=== PATIENT | male | born 1960 | race Caucasian/White ===

== ENCOUNTER 2023-09-19 18:52 | Inpatient (IN) | payer OTHER, SELFPAY ==
[2023-09-19 15:20] VITALS: BP 133/95
[2023-09-19 15:51] VITALS: BP 144/81
[2023-09-19 16:18] VITALS: BMI 46.8
[2023-09-19 16:26] LABS: Hematocrit 37.1 % (39.0-52.0); Hemoglobin 12.8 g/dL (13.0-18.0); Mean Corp Hgb Conc. 34.5 g/dL (33.0-37.0); Mean Corpuscular Hgb 29.4 pg (27.0-31.0); Mean Corpuscular Volume 85.3 fL (80.0-94.0); Platelet Count 120 10^3/uL (130-400); Red Blood Cell Count 4.35 10^6/uL (4.70-6.10)
[2023-09-19 16:42] LABS: ALT (SGPT) 30 U/L (0-50); AST (SGOT) 27 U/L (17-59); Albumin 3.9 g/dl (3.5-5.0); Alkaline Phosphatase 48 U/L (38-126); Blood Urea Nitrogen 14 mg/dl (9-20); Calcium 8.8 mg/dl (8.4-10.2); Carbon Dioxide 27 mmol/L (22-30); Chloride 103 mmol/L (98-107); Estimated Creatinine Clearance > 125 ml/min; Glucose 236 mg/dl (70-99); Potassium 4.6 mmol/L (3.5-5.1); Sodium 136 mmol/L (135-145); Total Bilirubin 1.3 mg/dl (0.2-1.3); Total Protein 6.6 g/dl (6.3-8.2); eGFR > 60.00
[2023-09-19 17:10] LABS: Lactic Acid 1.3 mmol/L (0.7-2.0)
[2023-09-19] MEDS: VANCOCIN 540 MG IV (17:27)
[2023-09-19] MEDS: ZOSYN 50 IV ×2 (17:28→23:25)
--- NOTE | 2023-09-19 17:37 | ED.GENMED ---
History of Present Illness
General
Chief Complaint: Skin Problem
Source: patient
Exam Limitations: none
Time Seen by Provider: 09/19/23 16:18
Nursing documentation reviewed up to this point in time: agreed with
Travel History
Have you had any contact with someone who has COVID-19?: No
Do you have any symptoms of coronavirus? Fever > 100 degrees, chills, cough, shortness of breath, sore throat, loss of taste or smell, muscle aches, or headache?: No
History of Present Illness
History of Present Illness:
63-year-old male insulin pen diabetes, A-fib on presents for bilateral lower extremity redness after power washing his deck on . Patient says he was wearing sneakers that got wet. He did not notice that he got blisters on both of his
feet on the plantar aspects. He does not have any known neuropathy. Patient says that the blisters popped the following day on and leaked some fluid out. He then 2 days later started getting redness up his legs which is now warm. He feels
flushed but no fever.
He denies pain out of proportion to the exam.
Past History
Past History
ED Past Medical History: NIDDM and Other (Kidney stone); Negative Asthma or CAD
ED Past Surgical History: Negative Appendectomy or Bowel resection
Social History
Tobacco: Non-smoker
Alcohol: None
Drug: None
Personal:
Living: with family
Employment: Employed
Family History
Family History: Hypertension
Review of Systems
Review of Systems
Allergies reviewed?: Yes
All Other Systems: Not applicable
Phy Exam
Physical Exam
Physical Exam:
GENERAL: Alert , in no apparent distress
EYE: pupils equal and reactive
NECK: Supple
ENT: o/p clr, mmm.
CARDIAC: Regular rate and rhythm .
LUNGS: Clear breath sounds bilaterally, no acute respiratory distress, no wheezes/rales/rhonchi
ABDOMEN: Soft, without focal tenderness, no r/g, no cvat, normal bowel sounds
NEUROLOGICAL: Alert and oriented, no focal neuro deficits
SKIN: Warm and dry, bilateral plantar feet with large open blisters subcutaneous tissue exposed, no drainage, entire feet and tib-fib region lower extremity is erythematous and warm
MUSCULOSKELETAL: bilateral plantar blisters/open wounds with cellulitis
PSYCH: Normal and appropriate interaction.
Course
Orders/Labs/Results
Orders:
Orders
09/19/23 Dinner
2000 calorie (17 carb) Diabetic
At Your Request: Full Participation
09/19/23 16:01
C-Reactive Protein Urgent
Comment: ADD ON
Complete Blood Count/No Diff Urgent
Comprehensive Metabolic Panel Urgent
Erythrocyte Sed Rate Urgent
Comment: ADD ON
Wound Culture [Wound/Abscess/Other Culture] Urgent
HERIBERTO Source: Ulcer
Specimen Description:
Date Specimen was Collected: 09/19/23
Time Specimen was Collected: 15:57
Comment: right foot
Wound/Abscess/Other Culture Urgent
HERIBERTO Source: Ulcer
Specimen Description:
Date Specimen was Collected: 09/19/23
Time Specimen was Collected: 15:57
Comment: left foot
09/19/23 16:45
Lactic Acid Urgent
Blood Culture Q30M
HERIBERTO Source: Blood/Venous
Specimen Description:
Blood Culture Q30M
HERIBERTO Source: Blood/Venous
Specimen Description:
09/19/23 16:47
Piperacillin/Tazo 3.375 Gram [Zosyn] 3.375 gram in 50 ml IV NOW
09/19/23 16:55
Vancomycin [Vancocin] 2,000 mg 0.9% Sodium Chloride 500 ml [Nss] 500 ml IV NOW
09/19/23 18:01
Admit/Transfer Patient As Directed
Co-Sign Provider:
Level of Care: Inpatient admission
Assign to:: Medical/Surgical
Physician / Group: Luis
Diagnosis: Sepsis, infected plantar ulcers, cellulitis
Reason for Hospitalization: IV antibiotics, podiatry consult
Expected length of stay greater than two midnights?: Yes
ELOS- Estimated Length of Stay in days: 3
I certify the patient meets the requirements for IP care: Yes
09/19/23 18:05
Code Status As Directed
Resuscitation Status: Full Code
09/19/23 18:16
CR Foot - Left Min 3 Views Routine
Comment:
Reason For Exam: plantar ulcer
CR Foot - Right Min 3 Views Routine
Comment:
Reason For Exam: plantar ulcer
09/19/23 19:22
0.9% Sodium Chloride 1000 ml [Nss] 1,000 ml IV 100 mls/hr
Acetaminophen [Tylenol] 650 mg PO Q6HPRN PRN
Dextrose 50%-Water [Dextrose 50% Syringe] 12.5 grams IV [id number] PRN
Glucagon [GlucaGen] 1 mg IM PRN PRN
Insulin Aspart/Asp Protamine [Novolog Mix 70/30 Flexpen] 45 units SC BID@0800,1700
09/19/23 19:22
PODIATRY CONSULT Routine
Consulting Provider: Mandy Cavazos
Was physician already notified: Yes
Activity As Directed
Activity Level: Ambulate
Bedside Glucose Monitoring As Directed
Frequency: AC&HS
Additional Instructions:: Change to q6h if pt on TPN, tube feeding or not eating
DX Deep Vein Thrombosis Video Routine
09/19/23 20:00
Metoprolol Xl [Toprol Xl] 25 mg PO BID
09/19/23 22:00
Cpap [RESP] HS
Patient to use own unit?: Yes
09/20/23 00:00
Piperacillin/Tazo 3.375 Gram [Zosyn] 3.375 gram in 50 ml IV Q6H
09/20/23 06:00
BMP [Basic Metabolic Panel] IN AM
CBC/With Diff [Complete Blood Count/With Diff] IN AM
Glycohemoglobin (HgbA1c) IN AM
09/20/23 07:00
VANCOMYCIN Pharmacy to Dose [VANCOCIN Pharmacy to Dose] 1 each Pharmacy To Prepare [Call Pharmacy To Prepare] 0 ml IV PER PROTOCOL
09/20/23 07:30
Insulin Aspart Corrective Low [Novolog Flexpen-Low Resistance] See Protocol SC AC
09/20/23 08:00
Ezetimibe [Zetia] 10 mg PO DAILY
Furosemide [Lasix] 20 mg PO DAILY
Losartan [Cozaar] 50 mg PO DAILY
09/20/23 18:00
Cholecalciferol (Vitamin D3) [VITAMIN D3 (cholecalciferol)] 75 mcg PO QPM
Enoxaparin Sodium [Lovenox] 40 mg SC QPM
09/21/23 06:00
CBC/With Diff [Complete Blood Count/With Diff] IN AM
Abnormal Lab Results
09/19/23
16:01
WBC 12.0 H 10^3/uL
(4.8-10.8)
RBC 4.35 L 10^6/uL
(4.70-6.10)
Hgb 12.8 L g/dL
(13.0-18.0)
Hct 37.1 L %
(39.0-52.0)
Plt Count 120 L 10^3/uL
(130-400)
MPV 11.0 H fL
(7.4-10.4)
ESR 37 H mm/hour
(0-20)
Glucose 236 H mg/dl
(70-99)
C-Reactive Protein 58.60 H mg/L
(0.0-10.00)
09/19/23 16:01
09/19/23 16:01
Vital Signs
Initial and Last Documented VS:
Initial Vital Signs
Temp Pulse Resp BP Pulse Ox
98.2 F 98 18 133/95 100
09/19/23 15:20 09/19/23 15:20 09/19/23 15:20 09/19/23 15:20 09/19/23 15:20
Last Documented Vital Signs
Temp Pulse Resp BP Pulse Ox
99.4 F 93 18 146/73 20
09/19/23 22:50 09/19/23 22:50 09/19/23 22:50 09/19/23 22:50 09/19/23 22:50
MDM/Problems Addressed
Differential Diagnosis Includes:
cellulitis, plantar blisters, diabetic wounds, less likely nec fasc
MDM/Problems Addressed:
63 y/o M with h/o IDDM
afib on eliquis
was power washing the deck with hose water, no chemicals 5 days ago and wearing wet sneakers; got blisters both feet that popped the following day; then started with redness 2 days ago and progressed up his legs; afebrile; open blisters b/l plantar
feet and cellulitis B/L LE almost to knees; wbc 12, lactate normal; vanc/zosyn;
*Critical Care Note
Total Time (30-74mins, 75-104mins- exclusive of procedures): Not Applicable
ED Attending Note
-
Portions of this chart may have been created with voice recognition software.� Occasional wrong word or��sound alike� substitutions may have occurred due to the inherent limitations of voice recognition software.
Discharge Plan
Departure
Patient Disposition: Admit
Date of Disposition: 09/19/23
Time of Disposition: 17:34
Admit to: Med/Surg
Presentation/result/management discussed w/ accepting MD/DO: Hospitalist
Condition: Fair
Covid-19: Not Applicable
Discharge Problem:
diabetic skin infection, Bilateral cellulitis of lower leg
Interventions
Interventions:
*Risk Screen - Suicide Last Done: 09/19/23 15:20
*General Assessment Last Done: 09/19/23 15:20
*Neglect/Abuse Screening Last Done: 09/19/23 15:20
ED- Fall Risk Assessment Last Done: 09/19/23 16:18
*ED COVID-19 Vaccine History Last Done: 09/19/23 15:25
*Nursing Disposition Last Done: 09/19/23 19:05
ED-Skin Assessment Last Done: 09/19/23 16:18
Discharge Date and Time
Discharge Date/Time: 09/19/23 19:17
--- NOTE | 2023-09-19 18:11 | HPS.HSE ---
Family Physician
-
Family Physician: Rigo Mora
Chief Complaint
-
Painful plantar blisters
History of Present Illness
63-year-old male with diabetes here complaining of painful blisters on the bottom of both feet.
He was power washing his deck last Saturday with wet sneakers and subsequently noted ulcers on both plantar feet on Saturday.
Subsequently noted progressive redness and swelling of both legs over the past 24 to 48 hours.
Had chills at home but not sure if he had a fever. Did not check.
Denies history of cellulitis.
Has not been checking his blood sugars on a regular basis at home.
Has not been to a revenue research analyst in a long time. Denies history of vascular disease.
Medical History
Past Medical History
Past Medical History: Reports Other
Additional Past Medical History:
DM2
Permanent atrial fibrillation
Morbid obesity
HERIBERTO
TIA
Hyperlipidemia
Essential hypertension
Past Surgical History: Reports Orthopedic
Social History
Tobacco: Non-smoker
Alcohol: Occasional
Drug: None
Personal:
Living: With Family
Family History
Family History: Not pertinent
Allergies / Home Medications
Allergies reflects when Allergies were last updated in [facility].
Home Medications with original date entered in [facility]
Allergy/Medication List:
Allergies
Allergy/AdvReac Type Severity Reaction Status Date / Time
Sulfa (Sulfonamide Allergy Hives Verified 09/19/23 15:20
Antibiotics)
sulfamethoxazole Allergy Hives Verified 09/19/23 15:20
[From Bactrim]
trimethoprim [From Bactrim] Allergy Hives Verified 09/19/23 15:20
Home Medications
kzgswdl-mgotsispoczjo-ohbwzqep 250 mg-250 mg-65 mg tablet (Excedrin Migraine) 2 tab PO Q6H PRN headache 11/02/21
omega 5-haz-flg-fish oil 1,000 mg (120 mg-180 mg) capsule (Fish Oil) 1 cap PO QPM Supplement 11/02/21
vitamin B complex 1 cap PO QPM Supplement 11/02/21
apixaban 5 mg tablet (Eliquis) 5 mg PO BID 09/19/23
cholecalciferol (vitamin D3) 25 mcg (1,000 unit) tablet 75 mcg PO QPM 09/19/23
ezetimibe 10 mg tablet 10 mg PO DAILY 09/19/23
furosemide 20 mg tablet 20 mg PO DAILY 09/19/23
insulin lispro protamine-lispro 100 unit/mL (75-25) subcutaneous pen (Humalog Mix 75-25 KwikPen) 40 unit SC DAILY 09/19/23
insulin lispro protamine-lispro 100 unit/mL (75-25) subcutaneous pen (Humalog Mix 75-25 KwikPen) 55 unit SC QPM 09/19/23
losartan 50 mg tablet 50 mg PO DAILY 09/19/23
metoprolol succinate 25 mg tablet,extended release 24 hr (Toprol XL) 25 mg PO BID 09/19/23
tirzepatide 5 mg/0.5 mL subcutaneous pen injector (Mounjaro) 5 mg SC TH 09/19/23
Review of Systems
-
History Source: Patient
A 12 point ROS was completed and negative except as noted: Yes
Physical Exam
Vital Signs
Vital Signs
Temp Pulse Resp BP Pulse Ox
98.2 F 98 18 144/81 97
09/19/23 15:20 09/19/23 15:20 09/19/23 15:20 09/19/23 15:51 09/19/23 17:16
Physical Exam
General: Well Developed, Well Nourished, No Apparent Distress, Comfortable and Morbidly Obese
HEENT: NormoCephalic, Anicteric and Moist mucous membranes
Respiratory: Clear
Cardiac: S1/S2 and Regular Rhythm
Breast: Deferred by me
GI: Soft, Non Tender and Non Distended
Genito-urinary: Deferred by me
Musculoskeletal: No Clubbing, No Cyanosis, Edema, Left Lower Extremity and Edema, Right Lower Extremity
Skin: Warm, Dry and Other (Bilateral ankle erythema and cellulitic changes, bilateral plantar large superficial ulcers without active drainage. Callus at the head of both first metatarsals)
Neuro: AO x 3
Hematologic/Lymphatic: No Lymphadenopathy
Psych: Calm
Laboratory Results
-
09/19/23 16:01
09/19/23 16:01
Laboratory Results
Lactic Acid 1.3 mmol/L (0.7-2.0) 09/19/23 16:45
Total Bilirubin 1.3 mg/dl (0.2-1.3) 09/19/23 16:01
AST 27 U/L (17-59) 09/19/23 16:01
ALT 30 U/L (0-50) 09/19/23 16:01
Alkaline Phosphatase 48 U/L (38-126) 09/19/23 16:01
Impression/Plan
-
Sepsis due to bilateral lower extremity plantar ulcers/cellulitis -admit to [facility]. Hemodynamically stable. Leukocytosis noted. Afebrile. Continue broad-spectrum antibiotics. Check cultures. Consult podiatry. Check x-rays of both feet. ESR,
CRP.
Check lower extremity BITA, assess for PAD.
Permanent atrial fibrillation -hold Eliquis in case of need for debridement. Discussed with podiatry.
Thrombocytopenia -120k. Unknown acuity or etiology. Monitor for now.
DM2 with hyperglycemia -glucose 236 this afternoon. Check hemoglobin A1c. Use NovoLog Mix insulin along with low resistance corrective scale for now.
At home he is on Humalog mix insulin 75/25, 40 units in the morning and 55 units in the evening along with Mounjaro 5 mg subcutaneously every . He did not receive the dose of Mounjaro today. This medication is non-formulary, he will ask
his to bring it in tomorrow.
Essential hypertension -resume losartan, metoprolol.
Hyperlipidemia
Hx of TIA
HERIBERTO - will bring in home CPAP machine.
Morbid obesity due to excess calories
Full code
--- NOTE | 2023-09-19 19:00 | EDRN ---
paper report was tubed up to the receiving unit
[2023-09-19 19:10] VITALS: BP 147/76
[2023-09-19 19:33] VITALS: BMI 46.6
[2023-09-19 19:36] VITALS: BP 112/84
[2023-09-19 19:43] LABS: Glucose - Point of Care 139 mg/dl (70-99)
[2023-09-19 19:56] VITALS: BMI 46.6
[2023-09-19 20:25] LABS: Erythrocyte Sed Rate 37 mm/hour (0-20)
[2023-09-19 21:14] LABS: Glucose - Point of Care 231 mg/dl (70-99)
--- NOTE | 2023-09-19 21:45 | PTCARENOTE ---
Pt arrived to room 437-02. Pt ambulated from stretcher to bed. Pt AAOx3, VSS. Pt in no signs of acute distress, respirations regular. Pt at bedside. Pt oriented to room, call max placed within reach.
[2023-09-19] MEDS: NOVOLOG MIX 70/30 FLEXPEN 45 UNITS SC (21:47)
[2023-09-19] MEDS: TOPROL XL 25 MG PO (21:48)
[2023-09-19] MEDS: NSS 1000 IV (21:48)
[2023-09-19 22:50] VITALS: BP 146/73
[2023-09-19] MEDS: TYLENOL 650 MG PO (23:34)
[2023-09-20] MEDS: ZOSYN 50 IV ×3 (05:48→17:20)
[2023-09-20] MEDS: TYLENOL 650 MG PO ×2 (05:50→17:53)
[2023-09-20 07:30] VITALS: BP 111/79
--- NOTE | 2023-09-20 08:05 | W.CS.POD ---
Consult Summary - Podiatry
-
Pt seen bedside for cellulitis of the legs and feet secondary to blisters on the feet. He says he feels much better. Ulcers plantar aspect of feet are superficial. No need for surgical debridement . Recommend bacitracin and gauze dressings until
healed and to be changed daily. He is ok for D/C on PO antibioitics. He will f/u in my office in one week Consult dictated
[2023-09-20 08:13] LABS: Glucose - Point of Care 107 mg/dl (70-99)
[2023-09-20 09:09] LABS: % Basophils 0.7 % (0-2); % Eosinophils 1.8 % (0-6); % Immature Granulocytes 0.5 % (0-0.5); % Lymphocytes 18.1 % (20.5-51.1); % Monocytes 8.7 % (1.7-9.3); % Neutrophils 70.2 % (42.2-75.2); Absolute Basophils 0.1 10^3/uL (0-0.2); Absolute Eosinophils 0.2 10^3/uL (0-0.7); Absolute Immature Granulocytes 0.1 10^3/uL (0-0.05); Absolute Lymphocytes 1.7 10^3/uL (1.2-3.4); Absolute Monocytes 0.8 10^3/uL (0.1-0.6); Absolute Neutrophils 6.4 10^3/uL (1.4-6.5); Hematocrit 35.9 % (39.0-52.0); Hemoglobin 12.2 g/dL (13.0-18.0); Mean Corpuscular Hgb 29.2 pg (27.0-31.0); Mean Corpuscular Volume 85.9 fL (80.0-94.0); Mean Platelet Volume 10.8 fL (7.4-10.4); Nucleated Red Blood Cells % 0 % (-); Platelet Count 120 10^3/uL (130-400); Red Blood Cell Count 4.18 10^6/uL (4.70-6.10); Red Cell Dist. Width 13.1 % (11.5-14.5); White Blood Cell Count 9.1 10^3/uL (4.8-10.8)
[2023-09-20 09:23] LABS: Vancomycin Random 5.5 ug/ml
[2023-09-20] MEDS: NOVOLOG FLEXPEN-LOW RESISTANCE SC ×3 (09:26→17:19)
[2023-09-20] MEDS: ZETIA 10 MG PO (09:27)
[2023-09-20] MEDS: COZAAR 50 MG PO (09:28)
[2023-09-20] MEDS: TOPROL XL 25 MG PO ×2 (09:28→21:42)
[2023-09-20] MEDS: LASIX 20 MG PO (09:28)
[2023-09-20] MEDS: NOVOLOG MIX 70/30 FLEXPEN 45 UNITS SC ×2 (09:29→17:21)
--- NOTE | 2023-09-20 09:33 | PHA.VAN.IN ---
Assessment
- Assessment
Renal Function: Appears similar to baseline
Concomitant Antimicrobials: piperacillin/tazobactam
Laboratory Tests
09/20/23
08:42
Random Vancomycin 5.5
Drawn ~15H after 2g loading dose
AUC Dosing Plan
- Dosing Variables
Dosing Weight (kg): 173
Dosing CrCl (ml/min): 125
Vd coefficient (L/kg): 0.5
- Empiric Dosing
Initial / Loading Dose: 2000mg - 09/18 17:27
Maintenance Regimen: Vanc 1750mg Q12H -give additional 2g now then start maintenance at 1800
Estimated AUC (mcg*h/mL): 415
Estimated Peak (mcg*h/mL): 27.8
Estimated Trough (mcg/ml): 10
Estimated Half Life (H): 6.4
Based on low level and anticipation that patient will be slow to accumulate with BMI, will give additional 2000mg this AM and start 1750mg Q12H at 1800
- Monitoring
No levels ordered at this time: consider levels in next few days - anticipate will be slow to accumulate
Pharmacokinetics Vancomycin I
- -
Patient Age: 63
Patient Sex: Male
Vancomycin Day #: 1
Indication: Skin And Soft Tissue
Requesting Provider: Dr. Smith
Pertinent Antimicrobial Allergies:
sulfonamide antibiotics - hives
Height / Weight:
Height 6 ft 4 in
Actual Weight 173.414 kg
Pertinent Past Medical History: BMI ~46.5, DM 2
- Vital Signs / Lab Results
Temp Pulse Resp BP Pulse Ox
98.1 F 92 16 111/79 95
09/20/23 07:30 09/20/23 07:30 09/20/23 07:30 09/20/23 07:30 09/20/23 07:30
Lab Results - Hematology
09/19/23 09/20/23
16:01 08:42
WBC 12.0 H 9.1
Lab Results - Chemistry
09/19/23
16:01
BUN 14
Creatinine 0.8
Estimated Creat Clear > 125
Albumin 3.9
09/19/23
16:45
Lactic Acid 1.3
Microbiology Results
09/19/23 16:01 Gram Stain - Preliminary
Ulcer
09/19/23 16:01 Gram Stain - Preliminary
Ulcer
--- NOTE | 2023-09-20 09:46 | WOUNDNOTE ---
[facility] RN note: Patient admitted with bilateral foot blisters.
See H&P for complete history.
PMH: DM2
Permanent atrial fibrillation
Morbid obesity
HERIBERTO
TIA
Hyperlipidemia
Essential hypertension
Wound Location and type/assessment: Patient admitted with bilateral plantar blisters. Patient reports working for many hours in wet shoes and discovered blisters the following day. He has been seen by podiatry and will follow up as outpatient.
Orders updated per recommendations from Dr. Cavazos. Patient given instruction by this director underwriter sales on performing wound care at home. Patient given wound care supplies. Also reviewed importance of good blood sugar control and foot care/daily inspection.
Plan is for discharge to home today. KHADIJAH Beltrán updated.
Appetite: Good
Pressure redistribution devices in place: [employer] Accumax,patient ambulates and turns self in bed.
[2023-09-20 09:49] LABS: Blood Urea Nitrogen 12 mg/dl (9-20); Calcium 8.6 mg/dl (8.4-10.2); Carbon Dioxide 25 mmol/L (22-30); Chloride 107 mmol/L (98-107); Estimated Creatinine Clearance > 125 ml/min; Glucose 104 mg/dl (70-99); Potassium 4.1 mmol/L (3.5-5.1); Sodium 138 mmol/L (135-145); eGFR > 60.00
[2023-09-20] MEDS: VANCOCIN 540 MG IV (10:06)
[2023-09-20] MEDS: BACITRACIN OINTMENT 1 APPLIC TOPICAL (10:12)
[2023-09-20] MEDS: ELIQUIS 5 MG PO ×2 (10:16→21:42)
[2023-09-20 10:36] LABS: Hepatitis C Antibody Negative (Negative)
[2023-09-20 11:57] LABS: Glucose - Point of Care 142 mg/dl (70-99)
--- NOTE | 2023-09-20 12:04 | W.PN.HOSP.TC ---
Today's Communication/Plan
-
Continue antibiotics
Await cultures
Assessment / Plan
Assessment / Plan
Gen-AAOx3, NAD
HEENT-NC, AT, anicteric, clear oral mm
Neck-supple
CV-reg, no M, +S1/S2
Lungs-clear B/L
Abd-soft, NT, ND
Ext-no edema
Musculoskeletal-no cyanosis, clubbing
Skin-warm and dry
Neuro-grossly non-focal
Psych-calm, cooperative
Sepsis due to bilateral lower extremity plantar ulcers/cellulitis -improving with antibiotics. WBC count now normal. Afebrile. Blood and wound cx pending. Currently on empiric broad-spectrum antibiotics, vancomycin and Zosyn.
Appreciate podiatry input. No recommendation for debridement. Follow up as outpatient.
X-rays of feet neg for osteo.
BITA normal bilaterally.
Permanent atrial fibrillation -resume Eliquis.
Thrombocytopenia -120k. Unknown acuity or etiology. Monitor for now.
DM2 with hyperglycemia -glucose 104 this morning. Check hemoglobin A1c. Use NovoLog Mix insulin along with low resistance corrective scale for now.
At home he is on Humalog mix insulin 75/25, 40 units in the morning and 55 units in the evening along with Mounjaro 5 mg subcutaneously every .
Essential hypertension - continue losartan, metoprolol. Blood pressure controlled.
Hyperlipidemia
Hx of TIA
HERIBERTO - will bring in home CPAP machine.
Morbid obesity due to excess calories
Full code
Dispo -possible discharge tomorrow if he remains stable.
Anticipated Discharge: Within 24 hours
Subjective/Interval History
-
Date of Service: September 20, 2023
Patient seen/examined. Feels better, no complaints.
Objective Data
-
Labs:
Laboratory Results
09/20/23
08:42
WBC 9.1
Hgb 12.2 L
Hct 35.9 L
Plt Count 120 L
Sodium 138
Potassium 4.1
Chloride 107
Carbon Dioxide 25
BUN 12
Creatinine 0.8
Glucose 104 H
Calcium 8.6
Vital Signs:
Vital Signs
Temp Pulse Resp BP Pulse Ox
98.1 F 92 16 111/79 95
09/20/23 07:30 09/20/23 07:30 09/20/23 07:30 09/20/23 07:30 09/20/23 07:30
Review of Systems
-
History Source: Patient
All other systems: Reviewed and negative
--- NOTE | 2023-09-20 12:21 | WOUNDNOTE ---
LEFT PLANTAR FOOT
--- NOTE | 2023-09-20 12:21 | WOUNDNOTE ---
RIGHT PLANTAR FOOT
[2023-09-20 12:37] LABS: Glycohemoglobin (HgbA1c) 9.1 % (4.0-5.6)
--- NOTE | 2023-09-20 14:35 | CM ---
Patient seen at bedside. Patient states he lives with in 2 story home and family. Patient PCP is Dr. Mora and he uses the Pharmacy [facility] on [address] Patient is working and independent prior to admission Patient has truck in parking lot.
Patient has CPAP but no other DME. 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 CM will continue to follow for discharge planning needs.
Plan; home with no needs anticipated.
[2023-09-20 15:25] VITALS: BP 134/73
[2023-09-20 16:38] LABS: Glucose - Point of Care 104 mg/dl (70-99)
[2023-09-20] MEDS: VITAMIN D3 (cholecalciferol) 75 MCG PO (17:20)
[2023-09-20] MEDS: VANCOCIN 535 MG IV (18:00)
[2023-09-20 21:45] LABS: Glucose - Point of Care 215 mg/dl (70-99)
[2023-09-20 22:58] VITALS: BP 129/69
[2023-09-21] MEDS: ZOSYN 50 IV ×2 (00:18→05:27)
[2023-09-21] MEDS: FLUSH (NSS) 2 FLUSH IV (00:19)
[2023-09-21] MEDS: VANCOCIN 535 MG IV (05:27)
[2023-09-21] MEDS: FLUSH (NSS) 1 FLUSH IV (05:27)
[2023-09-21 06:16] LABS: % Basophils 0.9 % (0-2); % Eosinophils 2.2 % (0-6); % Immature Granulocytes 0.4 % (0-0.5); % Lymphocytes 15.3 % (20.5-51.1); % Monocytes 7.4 % (1.7-9.3); % Neutrophils 73.8 % (42.2-75.2); Absolute Basophils 0.1 10^3/uL (0-0.2); Absolute Eosinophils 0.2 10^3/uL (0-0.7); Absolute Lymphocytes 1.3 10^3/uL (1.2-3.4); Absolute Monocytes 0.6 10^3/uL (0.1-0.6); Hematocrit 34.8 % (39.0-52.0); Hemoglobin 11.9 g/dL (13.0-18.0); Mean Corp Hgb Conc. 34.2 g/dL (33.0-37.0); Mean Corpuscular Volume 84.7 fL (80.0-94.0); Mean Platelet Volume 11.2 fL (7.4-10.4); Nucleated Red Blood Cells % 0 % (-); Platelet Count 122 10^3/uL (130-400); Red Blood Cell Count 4.11 10^6/uL (4.70-6.10); White Blood Cell Count 8.2 10^3/uL (4.8-10.8)
[2023-09-21 06:40] VITALS: BP 105/53
[2023-09-21 07:48] LABS: Glucose - Point of Care 166 mg/dl (70-99)
[2023-09-21] MEDS: NOVOLOG FLEXPEN-LOW RESISTANCE 1 UNITS SC (07:51)
[2023-09-21] MEDS: BACITRACIN OINTMENT 1 APPLIC TOPICAL (07:52)
[2023-09-21] MEDS: LASIX 20 MG PO (07:53)
[2023-09-21] MEDS: COZAAR 50 MG PO (07:53)
[2023-09-21] MEDS: ELIQUIS 5 MG PO (07:53)
[2023-09-21] MEDS: ZETIA 10 MG PO (07:53)
[2023-09-21] MEDS: TOPROL XL 25 MG PO (07:54)
[2023-09-21] MEDS: NOVOLOG MIX 70/30 FLEXPEN 45 UNITS SC (07:56)
--- NOTE | 2023-09-21 08:38 | W.PN.HOSP.TC ---
Addendum entered and electronically signed by Christiano Smith DO 09/21/23 12:31:
After patient was discharged, wound culture came back with polymicrobial growth including methicillin sensitive Staph aureus, Enterococcus, group G Streptococcus.
He therefore only needs Augmentin on discharge. I left a voicemail for patient's informing her of the findings and to forego taking doxycycline but to continue to take Augmentin on discharge.
Original Note:
Today's Communication/Plan
-
Discharge
Assessment / Plan
Assessment / Plan
Gen-AAOx3, NAD
HEENT-NC, AT, anicteric, clear oral mm
Neck-supple
CV-reg, no M, +S1/S2
Lungs-clear B/L
Abd-soft, NT, ND
Ext-no edema
Musculoskeletal-no cyanosis, clubbing
Skin-warm and dry
Neuro-grossly non-focal
Psych-calm, cooperative
Sepsis due to bilateral lower extremity plantar ulcers/cellulitis -improving with antibiotics. WBC count now normal. Afebrile. Blood cultures negative. Wound culture shows Staph aureus, sensitivity pending. MRSA screen pending. Patient
requesting discharge today. Can discharge on doxycycline to cover MRSA, Augmentin for other bacteria including strep.
Appreciate podiatry input. No recommendation for debridement. Follow up as outpatient.
X-rays of feet neg for osteo.
BITA normal bilaterally.
Permanent atrial fibrillation -resume Eliquis.
Thrombocytopenia -122k. Unknown acuity or etiology. Recommend follow-up with PCP. Discussed with patient and .
DM2 with hyperglycemia -glucose 104 this morning. Hemoglobin A1c 9.1%. Discussed with patient importance of improving glucose control on discharge especially in light of his foot wounds. He plans to follow-up with PCP and endocrinology.
Use NovoLog Mix insulin along with low resistance corrective scale for now.
At home he is on Humalog mix insulin 75/25, 40 units in the morning and 55 units in the evening along with Mounjaro 5 mg subcutaneously every .
Essential hypertension - continue losartan, metoprolol. Blood pressure controlled.
Hyperlipidemia
Hx of TIA
HERIBERTO - will bring in home CPAP machine.
Morbid obesity due to excess calories
Full code
Dispo -stable for discharge today. Follow-up with PCP and endocrinology, podiatry.
32 minutes spent in discharge process.
Anticipated Discharge: Today
Subjective/Interval History
-
Date of Service: September 21, 2023
Patient seen and examined. No new complaints.
Objective Data
-
Labs:
Laboratory Results
09/21/23
04:38
WBC 8.2
Hgb 11.9 L
Hct 34.8 L
Plt Count 122 L
Vital Signs:
Vital Signs
Temp Pulse Resp BP Pulse Ox
98.6 F 80 20 105/53 95
09/21/23 06:40 09/21/23 06:40 09/21/23 06:40 09/21/23 06:40 09/21/23 06:40
I&O
09/20/23 09/21/23 09/22/23
06:59 06:59 06:59
Intake Total 1115 / 1115
Balance 1115 / 1115
Review of Systems
-
History Source: Patient
All other systems: Reviewed and negative
--- NOTE | 2023-09-21 08:48 | W.DS.TRANS ---
DC Summary - Cro
-
Discharge Instructions:
Discharge Diagnosis/Procedures Sepsis, bilateral plantar ulcers,
thrombocytopenia, uncontrolled diabetes
Diet Diabetic, Carb Controlled
Activity As tolerated
Driving Restrictions As prior to admission
Bathing Restrictions None
Instructions:
Stand-Alone Forms:
Changes to Home Medications: No
Discharge Medications:
DC Medications w/original date entered in [facility]
tjymrqq-mceazkxfadokf-kgdzarlg 250 mg-250 mg-65 mg tablet (Excedrin Migraine) 2 tab PO Q6H PRN headache 11/02/21
omega 6-btn-dwr-fish oil 1,000 mg (120 mg-180 mg) capsule (Fish Oil) 1 cap PO QPM Supplement 11/02/21
vitamin B complex 1 cap PO QPM Supplement 11/02/21
apixaban 5 mg tablet (Eliquis) 5 mg PO BID 09/19/23
cholecalciferol (vitamin D3) 25 mcg (1,000 unit) tablet 75 mcg PO QPM 09/19/23
ezetimibe 10 mg tablet 10 mg PO DAILY 09/19/23
furosemide 20 mg tablet 20 mg PO DAILY 09/19/23
insulin lispro protamine-lispro 100 unit/mL (75-25) subcutaneous pen (Humalog Mix 75-25 KwikPen) 40 unit SC DAILY 09/19/23
insulin lispro protamine-lispro 100 unit/mL (75-25) subcutaneous pen (Humalog Mix 75-25 KwikPen) 55 unit SC QPM 09/19/23
losartan 50 mg tablet 50 mg PO DAILY 09/19/23
metoprolol succinate 25 mg tablet,extended release 24 hr (Toprol XL) 25 mg PO BID 09/19/23
tirzepatide 5 mg/0.5 mL subcutaneous pen injector (Mounjaro) 5 mg SC TH 09/19/23
amoxicillin 875 mg-potassium clavulanate 125 mg tablet 1 tab PO BID #20 tabs 09/21/23
bacitracin zinc 500 unit/gram topical ointment 1 applic topical DAILY #28 grams 09/21/23
doxycycline hyclate 100 mg tablet 100 mg PO BID #20 tabs 09/21/23
Home Medication Changes
Pending Results: No
== END 2023-09-21 09:43 | disposition home or self-care (01) | DRG 872 ==
LOC: 4 WEST ACU 18:52
PROVIDERS: Emergency Medicine; Physician Assistant; ADMITTING PHYSICIAN Hospitalist; CONSULT PHYSICIAN Podiatrist; EMERGENCY PHYSICIAN Student in an Organized Health Care Education/Training Program; FAMILY PHYSICIAN Family Medicine
DX: A41.9 Sepsis, unspecified organism (principal); L03.115 Cellulitis of right lower limb; L03.116 Cellulitis of left lower limb; I48.21 Permanent atrial fibrillation; Z68.42 Body mass index [BMI] 45.0-49.9, adult; L97.421 Non-pressure chronic ulcer of left heel and midfoot limited to breakdown of skin; L97.411 Non-pressure chronic ulcer of right heel and midfoot limited to breakdown of skin; E11.621 Type 2 diabetes mellitus with foot ulcer; E11.65 Type 2 diabetes mellitus with hyperglycemia; G47.33 Obstructive sleep apnea (adult) (pediatric); E78.5 Hyperlipidemia, unspecified; I10 Essential (primary) hypertension; E66.01 Morbid (severe) obesity due to excess calories; B95.61 Methicillin susceptible Staphylococcus aureus infection as the cause of diseases classified elsewhere; B95.2 Enterococcus as the cause of diseases classified elsewhere; B95.4 Other streptococcus as the cause of diseases classified elsewhere; D69.6 Thrombocytopenia, unspecified; Z86.73 Personal history of transient ischemic attack (TIA), and cerebral infarction without residual deficits; Z88.1 Allergy status to other antibiotic agents; Z88.2 Allergy status to sulfonamides; Z79.01 Long term (current) use of anticoagulants; Z79.4 Long term (current) use of insulin; Z79.82 Long term (current) use of aspirin; Z79.85 Long-term (current) use of injectable non-insulin antidiabetic drugs
CPT/HCPCS: 73630; 80048; 80053; 80202; 82962; 83036; 83605; 85025; 85027; 85652; 86140; 86803; 87040; 87070; 87077; 87147; 87186; 87205; 93922; 96365; 96366; 96367; 99284

== ENCOUNTER → 2023-10-07 08:05 | Outpatient (REF) | payer OTHER, SELFPAY | LOC: WOUND 08:05 | PROVIDERS: ATTENDING PHYSICIAN Surgery; FAMILY PHYSICIAN Family Medicine | DX: L97.512 Non-pressure chronic ulcer of other part of right foot with fat layer exposed (principal); L97.522 Non-pressure chronic ulcer of other part of left foot with fat layer exposed; I87.2 Venous insufficiency (chronic) (peripheral); I73.9 Peripheral vascular disease, unspecified; E11.65 Type 2 diabetes mellitus with hyperglycemia; E11.69 Type 2 diabetes mellitus with other specified complication; E66.01 Morbid (severe) obesity due to excess calories; Z86.73 Personal history of transient ischemic attack (TIA), and cerebral infarction without residual deficits; Z79.4 Long term (current) use of insulin | CPT/HCPCS: 99204 ==

== ENCOUNTER → 2023-10-14 13:14 | Outpatient (REF) | payer OTHER, SELFPAY | LOC: WOUND 13:14 | PROVIDERS: ATTENDING PHYSICIAN Surgery; FAMILY PHYSICIAN Family Medicine | DX: L97.512 Non-pressure chronic ulcer of other part of right foot with fat layer exposed (principal); L97.522 Non-pressure chronic ulcer of other part of left foot with fat layer exposed; I87.2 Venous insufficiency (chronic) (peripheral); I73.9 Peripheral vascular disease, unspecified; E11.65 Type 2 diabetes mellitus with hyperglycemia; E11.69 Type 2 diabetes mellitus with other specified complication; E66.01 Morbid (severe) obesity due to excess calories; Z86.73 Personal history of transient ischemic attack (TIA), and cerebral infarction without residual deficits; Z79.4 Long term (current) use of insulin | CPT/HCPCS: 99213 ==

== ENCOUNTER → 2023-12-03 12:47 | Outpatient (REF) | payer OTHER, SELFPAY | LOC: RAD 12:47 | PROVIDERS: ATTENDING PHYSICIAN Surgery; FAMILY PHYSICIAN Family Medicine | DX: L97.512 Non-pressure chronic ulcer of other part of right foot with fat layer exposed (principal); I87.2 Venous insufficiency (chronic) (peripheral); I73.9 Peripheral vascular disease, unspecified | CPT/HCPCS: 93922; 93925; 93970 ==

== ENCOUNTER 2024-03-26 19:56 | Emergency (ER) | payer OTHER, SELFPAY ==
[2024-03-26 19:56] VITALS: BMI 46.6
[2024-03-26 20:10] VITALS: BP 133/87
[2024-03-26] MEDS: ROXICODONE 10 MG PO (20:31)
--- NOTE | 2024-03-26 20:35 | ED.GENMED ---
History of Present Illness
General
Chief Complaint: Head Injury
Source: patient and spouse
Time Seen by Provider: 03/26/24 20:12
History of Present Illness
History of Present Illness:
63-year-old male who presents after he fell backward off a ladder. The patient states he was probably on the first rung. It was a stepladder. He states he just lost his balance and fell back and hit his head on a TV table. Also complains of a
pain in left lower back. States he thinks he may have hit the edge of the couch. Patient is anticoagulated due to A-fib. Denies loss of consciousness. No motor weakness. No numbness. No tingling. No neck pain. Spouse adds that there was a TV
stand nearby she thinks he hit his head on that.
Past History
Past History
ED Past Medical History: Arrthythmia (Atrial fibrillation), CVA, NIDDM and Other (Kidney stone)
ED Past Surgical History: Negative Appendectomy or Bowel resection
Social History
Tobacco: Non-smoker
Alcohol: None
Drug: None
Personal:
Living: with family
Employment: Employed
Family History
Family History: Hypertension
Phy Exam
Physical Exam
Physical Exam:
CONSTITUTIONAL Patient alert and oriented to person, place and time. Well-appearing. Vital signs reviewed.
HEAD right posterior scalp abrasion approximately 1.5 cm, no active bleeding.
EYES eyelids normal to inspection, Extraocular muscles intact, Conjunctiva normal, Sclera normal.
NECK normal range of motion, Trachea midline, no jugular venous distention. No midline tenderness
RESPIRATORY CHEST No respiratory distress noted, Chest expansion equal
ABDOMEN abdomen nontender, Bowel sounds normal. No distention.
BACK normal inspection, no obvious deformities. Mild midline tenderness around the area of L5. Mild tenderness to the left paraspinal region in that area.
UPPER EXTREMITY range of motion normal, Motor strength normal, no cyanosis, no edema.
LOWER EXTREMITY range of motion normal, Motor strength normal, no cyanosis, no edema.
NEURO Speech normal, No focal motor deficits, Ava coma scale 15, Memory normal, Cranial Nerves intact to screening exam.
SKIN skin warm, dry, and normal in color.
Course
Orders/Labs/Results
Orders:
Orders
03/26/24 20:15
CT Head W/o Iv Contrast Urgent
Comment:
Reason For Exam: fall off ladder
CT Lumbar Spine W/o Iv Contras Urgent
Comment:
Reason For Exam: fall off ladder
03/26/24 20:25
Oxycodone [Roxicodone] 10 mg PO NOW STA
03/26/24 21:03
Vital Signs- Treatment ONCE
Frequency: Once
Vital Signs
Initial and Last Documented VS:
Initial Vital Signs
Pulse Ox
100
03/26/24 20:00
Last Documented Vital Signs
Temp Pulse Resp BP Pulse Ox
98.3 F 80 16 144/61 98
03/26/24 22:00 03/26/24 22:39 03/26/24 22:00 03/26/24 22:00 03/26/24 22:39
MDM/Problems Addressed
Differential Diagnosis Includes:
contusion, abrasion, intracranial hemorrhage, skull fracture
MDM/Problems Addressed:
Abrasion, head injury, transverse process fracture
*Radiology
Radiology exam reviewed: radiology read reviewed
*Pulse Oximetry
Patient hypoxic: no
*Critical Care Note
Total Time (30-74mins, 75-104mins- exclusive of procedures): Not Applicable
Data Reviewed
Source: patient and spouse
Further Testing Considered But Not Given:
Consider C-spine imaging but no midline tenderness. No neck pain
Patient Management
Escalation/DeEscalation of care consider admission/obs:
63-year-old male who presents after fall. CT of the head negative for intracranial hemorrhage. Was found to have transverse process fracture. Nonfocal neurologic assessment. Okay for discharge with outpatient follow-up and pain control
ED Attending Note
-
Portions of this chart may have been created with voice recognition software.� Occasional wrong word or��sound alike� substitutions may have occurred due to the inherent limitations of voice recognition software.
Discharge Plan
Departure
Patient Disposition: Home (Routine Discharge)
Date of Disposition: 03/26/24
Time of Disposition: 23:06
Patient with high blood pressure during this ER visit?: Yes
Discharge Problem:
Head injury, Closed fracture of transverse process of lumbar vertebra, Abrasion
Instructions: Head Injury in Adults (DC), BLOOD PRESSURE, Abrasions - ED discharge instructions
Prescriptions:
No Action
Excedrin Migraine 250-250-65 mg Tablet
2 tab PO Q6H PRN (Reason: headache)
vitamin B complex Capsule
1 cap PO QPM
omega 3-rff-akx-fish oil [Fish Oil] 1,000 mg (120 mg-180 mg) Capsule
1 cap PO QPM
losartan 50 mg tablet
50 mg PO DAILY
furosemide 20 mg tablet
20 mg PO DAILY
insulin lispro protamin-lispro [Humalog Mix 75-25 KwikPen] 100 unit/mL (75-25) insulin pen
40 unit SC DAILY
insulin lispro protamin-lispro [Humalog Mix 75-25 KwikPen] 100 unit/mL (75-25) insulin pen
55 unit SC QPM
ezetimibe 10 mg tablet
10 mg PO DAILY
cholecalciferol (vitamin D3) 25 mcg (1,000 unit) Tablet
75 mcg PO QPM
Eliquis 5 mg tablet
5 mg PO BID
Mounjaro 5 mg/0.5 mL pen injector
5 mg SC TH
metoprolol succinate [Toprol XL] 25 mg tablet extended release 24 hr
25 mg PO BID
bacitracin zinc 500 unit/gram Ointment
1 applic topical DAILY Qty: 28 0RF
Rx Instructions:
apply to foot wounds daily
doxycycline hyclate 100 mg tablet
100 mg PO BID Qty: 20 0RF
amoxicillin-pot clavulanate 875-125 mg tablet
1 tab PO BID Qty: 20 0RF
Referrals:
UNKNOWN - PT DOES,NOT KNOW [Family Provider] -
Activity Restrictions/Additional Instructions:
Please see orthopedics in the next 1 week for follow-up. Rest and ice your injuries. Return immediately for weakness of any kind, worsening pain,
Interventions
Interventions:
*Risk Screen - Suicide Last Done: 03/26/24 20:12
*General Assessment Last Done: 03/26/24 20:12
*Neglect/Abuse Screening Last Done: 03/26/24 20:12
ED- Fall Risk Assessment Last Done: 03/26/24 20:12
ED- Neurological Assessment Last Done: 03/26/24 20:12
ED-Skin Assessment Last Done: 03/26/24 20:12
Discharge Date and Time
Print Language: URDU
[2024-03-26 21:00] VITALS: BP 139/89
[2024-03-26 22:00] VITALS: BP 144/61
[2024-03-26] MEDS: LIDOCAINE 4% PATCH 1 PATCH TOPICAL (23:35)
[2024-03-26 23:41] VITALS: BP 105/73
== END 2024-03-26 23:42 | disposition home or self-care (01) ==
LOC: EMR 19:56
PROVIDERS: EMERGENCY PHYSICIAN Emergency Medicine
DX: S32.018A Other fracture of first lumbar vertebra, initial encounter for closed fracture (principal); S32.028A Other fracture of second lumbar vertebra, initial encounter for closed fracture; S00.01XA Abrasion of scalp, initial encounter; S09.90XA Unspecified injury of head, initial encounter; W11.XXXA Fall on and from ladder, initial encounter; R03.0 Elevated blood-pressure reading, without diagnosis of hypertension; I48.91 Unspecified atrial fibrillation; E11.9 Type 2 diabetes mellitus without complications; Z87.442 Personal history of urinary calculi; Z86.73 Personal history of transient ischemic attack (TIA), and cerebral infarction without residual deficits; Z79.01 Long term (current) use of anticoagulants; Z88.1 Allergy status to other antibiotic agents; Z88.2 Allergy status to sulfonamides
CPT/HCPCS: 99284; 70450; 72131

== ENCOUNTER 2024-08-09 16:24 | Inpatient (IN) | payer OTHER, MEDICARE, SELFPAY ==
[2024-08-09] VITALS (7 sets, daily range): BP systolic 133–157; BP diastolic 68–99; BMI 48.1; BMI 46.1
[2024-08-09 11:50] LABS: Blood Urea Nitrogen 19 mg/dl (9-20); Calcium 9.3 mg/dl (8.4-10.2); Carbon Dioxide 26 mmol/L (22-30); Chloride 104 mmol/L (98-107); Estimated Creatinine Clearance > 125 ml/min; Glucose 293 mg/dl (70-99); Sodium 139 mmol/L (135-145); eGFR > 60.00
--- NOTE | 2024-08-09 12:02 | ED.GENMED ---
History of Present Illness
General
Chief Complaint: Breathing Problem
Source: patient
Exam Limitations: none
Time Seen by Provider: 08/09/24 11:41
History of Present Illness
History of Present Illness:
64yoM with a history of atrial fibrillation on Eliquis, insulin-dependent diabetes, prior CVA, HERIBERTO on CPAP, and obesity presenting for evaluation of shortness of breath. Symptoms have been ongoing for about 2 weeks. His symptoms are primarily
present with activity or at nighttime while he is lying flat. He states he has been outside more recently and is wondering if the pollen may be causing his symptoms. He woke up several times in the middle of the night last night due to dyspnea.
His shortness of breath was not relieved with his CPAP. He is also having some increased bilateral leg swelling. He does have some swelling normally and takes furosemide 20mg daily. He denies any chest pain, palpitations, cough, wheezing, fevers.
No prior history of heart disease or heart failure.
Past History
Past History
ED Past Medical History: Arrthythmia (Atrial fibrillation), CVA, NIDDM and Other (Kidney stone)
ED Past Surgical History: Negative Appendectomy or Bowel resection
Social History
Tobacco: Non-smoker
Alcohol: None
Drug: None
Personal:
Living: with family
Employment: Employed
Family History
Family History: Hypertension
Phy Exam
General Physical Exam
General Presentation: well appearing and no apparent distress
General Skin: warm and dry
General Habitus: normal
General Mental: alert
ENT Exam
ENT Exam: normocephalic
Cardiovascular Exam
Cardiovascular Exam: irregularly irregular and other (2+ pitting edema bilateral lower extremities)
Pulmonary Exam
Pulmonary Exam: no respiratory distress, no rhonchi, no wheezing and other (Breath sounds decreased at the bases)
Neurological Exam
Neurological Exam: alert
Wilcox Coma Scale
Eye Opening: Spontaneous
Verbal Response: Oriented
Motor Response: Obeys Commands
GCS Total Score: 15
Skin Exam
Skin Exam: normal color and warm/dry
Psychiatric Exam
Psychiatric Exam: normal mood/affect
Scores
Heart Failure Risk
Heart Failure Risk Score: Not Applicable
Course
Orders/Labs/Results
Orders:
Orders
08/09/24 11:28
Basic Metabolic Panel Urgent
CBC/With Diff [Complete Blood Count/With Diff] Urgent
08/09/24 11:38
Electrocardiogram (*1) Urgent
Reason for Study: Shortness of Breath
EKG- Treatment ONCE
08/09/24 12:00
Cardiac Monitoring- Treatment ONCE
08/09/24 12:24
D-Dimer Urgent
LFT [[id number]-[id number]-[id number]] Urgent
NT-proBNP Urgent
Potassium Urgent
Troponin I Urgent
08/09/24 12:51
CT Chest PE Study Urgent
Comment:
Reason For Exam: SOB, elevated D-dimer
08/09/24 14:28
Furosemide [Lasix] 40 mg IV NOW STA
Abnormal Lab Results
08/09/24 08/09/24
11:28 12:24
RBC 4.16 L 10^6/uL
(4.70-6.10)
Hgb 12.2 L g/dL
(13.0-18.0)
Hct 36.5 L %
(39.0-52.0)
Plt Count 109 L 10^3/uL
(130-400)
MPV 11.6 H fL
(7.4-10.4)
Lymphocytes % 19.3 L %
(20.5-51.1)
D-Dimer 2.93 H ug/mlFEU
(0.00-0.50)
Glucose 293 H mg/dl
(70-99)
Total Bilirubin 1.7 H mg/dl
(0.2-1.3)
ALT 53 H U/L
(0-50)
08/09/24 11:28
08/09/24 12:24
Vital Signs
Initial and Last Documented VS:
Initial Vital Signs
Temp Pulse Resp BP Pulse Ox
98.4 F 80 18 144/92 95
08/09/24 10:24 08/09/24 10:24 08/09/24 10:24 08/09/24 10:24 08/09/24 10:24
Last Documented Vital Signs
Temp Pulse Resp BP Pulse Ox
98.4 F 86 17 150/99 94
08/09/24 10:24 08/09/24 13:45 08/09/24 13:45 08/09/24 13:02 08/09/24 13:45
MDM/Problems Addressed
Differential Diagnosis Includes:
64yoM here with SOB x 2 weeks. Also c/o orthopnea and leg swelling. VSS. Patient is nontoxic-appearing. He appears volume overloaded with 2+ pitting edema in bilateral lower extremities. No prior history of CHF. Differential diagnosis includes
but is not limited to: CHF exacerbation, PE, ACS
Initial ED plan: Check cardiac labs, D-dimer, EKG, and CXR vs. CTA chest depending on D-dimer results.
*EKG
Interpreted by ED Provider?: Yes
EKG Intrepretation Date: 08/09/24
Heart Rate: 77
Rate: normal
Rhythm: a-fib
Forsyth: normal axis
Interval: normal interval
QRS Pattern: normal QRS
Ischemia: no ischemia
*Critical Care Note
Total Time (30-74mins, 75-104mins- exclusive of procedures): Not Applicable
Update Note
Update Note:
EKG shows rate controlled A-fib without ischemic changes and troponin within normal limits. BNP 832. D-dimer elevated and CTA chest subsequently ordered. CT is negative for PE but does reveal pulmonary edema and bilateral pleural effusions.
Hilar and mediastinal lymphadenopathy seen incidentally. 40mg IV Lasix ordered and patient admitted for further management.
ED Attending Note
-
Portions of this chart may have been created with voice recognition software.� Occasional wrong word or��sound alike� substitutions may have occurred due to the inherent limitations of voice recognition software.
Discharge Plan
Departure
Patient Disposition: Admit
Date of Disposition: 08/09/24
Time of Disposition: 14:56
Presentation/result/management discussed w/ accepting MD/DO: Hospitalist
Discharge Problem:
Acute exacerbation of congestive heart failure, Hilar lymphadenopathy
Prescriptions:
No Action
Excedrin Migraine 250-250-65 mg Tablet
2 tab PO Q6H PRN (Reason: headache)
vitamin B complex Capsule
1 cap PO QPM
omega 0-wkh-mkf-fish oil [Fish Oil] 1,000 mg (120 mg-180 mg) Capsule
1 cap PO QPM
losartan 50 mg tablet
50 mg PO DAILY
furosemide 20 mg tablet
20 mg PO DAILY
insulin lispro protamin-lispro [Humalog Mix 75-25 KwikPen] 100 unit/mL (75-25) insulin pen
40 unit SC DAILY
insulin lispro protamin-lispro [Humalog Mix 75-25 KwikPen] 100 unit/mL (75-25) insulin pen
55 unit SC QPM
ezetimibe 10 mg tablet
10 mg PO DAILY
cholecalciferol (vitamin D3) 25 mcg (1,000 unit) Tablet
75 mcg PO QPM
Eliquis 5 mg tablet
5 mg PO BID
Mounjaro 5 mg/0.5 mL pen injector
5 mg SC TH
metoprolol succinate [Toprol XL] 25 mg tablet extended release 24 hr
25 mg PO BID
bacitracin zinc 500 unit/gram Ointment
1 applic topical DAILY Qty: 28 0RF
Rx Instructions:
apply to foot wounds daily
doxycycline hyclate 100 mg tablet
100 mg PO BID Qty: 20 0RF
amoxicillin-pot clavulanate 875-125 mg tablet
1 tab PO BID Qty: 20 0RF
hydrocodone-acetaminophen 5-325 mg tablet
2 tab PO Q6H PRN (Reason: Pain) Qty: 15 0RF
Referrals:
Rigo Mora DO [Family Provider] -
Interventions
Interventions:
*Risk Screen - Suicide Last Done: 08/09/24 10:24
*General Assessment Last Done: 08/09/24 10:24
*Neglect/Abuse Screening Last Done: 08/09/24 10:24
*ED- Fall Risk Assessment Last Done: 08/09/24 14:32
*ED COVID-19 Vaccine History Last Done: 08/09/24 10:24
ED- Cardiac Assessment Last Done: 08/09/24 13:13
ED- Pulmonary Assessment Last Done: 08/09/24 13:13
Discharge Date and Time
Print Language: LITHUANIAN
[2024-08-09 12:08] LABS: % Eosinophils 1.7 % (0-6); % Immature Granulocytes 0.5 % (0-0.5); % Lymphocytes 19.3 % (20.5-51.1); % Monocytes 7.3 % (1.7-9.3); % Neutrophils 70.2 % (42.2-75.2); Absolute Basophils 0.1 10^3/uL (0-0.2); Absolute Eosinophils 0.1 10^3/uL (0-0.7); Absolute Lymphocytes 1.2 10^3/uL (1.2-3.4); Absolute Monocytes 0.4 10^3/uL (0.1-0.6); Absolute Neutrophils 4.3 10^3/uL (1.4-6.5); Hematocrit 36.5 % (39.0-52.0); Hemoglobin 12.2 g/dL (13.0-18.0); Mean Corp Hgb Conc. 33.4 g/dL (33.0-37.0); Mean Corpuscular Hgb 29.3 pg (27.0-31.0); Mean Corpuscular Volume 87.7 fL (80.0-94.0); Mean Platelet Volume 11.6 fL (7.4-10.4); Nucleated Red Blood Cells % 0 % (-); Platelet Count 109 10^3/uL (130-400); Red Blood Cell Count 4.16 10^6/uL (4.70-6.10); Red Cell Dist. Width 14.5 % (11.5-14.5); White Blood Cell Count 6.1 10^3/uL (4.8-10.8)
[2024-08-09 12:44] LABS: D-Dimer 2.93 ug/mlFEU (0.00-0.50)
[2024-08-09 12:45] LABS: ALT (SGPT) 53 U/L (0-50); AST (SGOT) 45 U/L (17-59); Albumin 3.9 g/dl (3.5-5.0); Alkaline Phosphatase 61 U/L (38-126); Direct Bilirubin 0.4 mg/dl (0.0-0.4); Potassium 4.3 mmol/L (3.5-5.1); Total Bilirubin 1.7 mg/dl (0.2-1.3); Total Protein 6.6 g/dl (6.3-8.2)
[2024-08-09 12:57] LABS: Troponin I < 0.012 ng/ml
[2024-08-09 13:49] LABS: NT-proBNP 832 pg/ml
[2024-08-09] MEDS: LASIX 40 MG IV (14:55)
--- NOTE | 2024-08-09 15:09 | HPS.HSE ---
Family Physician
-
Family Physician: Rigo Mora
Chief Complaint
-
Shortness of Breath
History of Present Illness
Patient is a 64 y/o male past medical history of recurrent pericarditis, permanent atrial fibrillation, prior stroke, hypertension, hyperlipidemia, diabetes mellitus, morbid obesity and obstructive sleep apnea who presents with increased shortness
of breath. Patient reports worsening shortness of breath over the past two weeks. He notes increasing dyspnea on exertion and orthopnea. Patient admits to lower extremity edema which has been presents for months. He does not weight himself on a
regular basis. He denies chest pain or palpitations. He denies cough, fevers, sweats or chills.
Medical History
Past Medical History
Past Medical History: Reports Other
Additional Past Medical History:
Permanent Atrial Fibrillation
Stroke
Essential Hypertension
Hyperlipidemia
Insulin Dependent Diabetes Mellitus
Obstructive Sleep Apnea
Morbid Obesity
Pericarditis / Pericardial Effusion
Past Surgical History: Reports Other
Social History
Tobacco: Non-smoker
Alcohol: Occasional
Family History
Family History: Not pertinent
Allergies / Home Medications
Allergies reflects when Allergies were last updated in [facility].
Home Medications with original date entered in [facility]
Allergy/Medication List:
Allergies
Allergy/AdvReac Type Severity Reaction Status Date / Time
Sulfa (Sulfonamide Allergy Hives Verified 08/09/24 10:28
Antibiotics)
sulfamethoxazole Allergy Hives Verified 08/09/24 10:28
[From Bactrim]
trimethoprim [From Bactrim] Allergy Hives Verified 08/09/24 10:28
Home Medications
omega 3-uvr-pqk-fish oil 1,000 mg (120 mg-180 mg) capsule (Fish Oil) 1 cap PO QPM Supplement 11/02/21
apixaban 5 mg tablet (Eliquis) 5 mg PO BID 09/19/23
cholecalciferol (vitamin D3) 25 mcg (1,000 unit) tablet 75 mcg PO QPM 09/19/23
ezetimibe 10 mg tablet 10 mg PO DAILY 09/19/23
furosemide 20 mg tablet 20 mg PO DAILY 09/19/23
insulin lispro protamine-lispro 100 unit/mL (75-25) subcutaneous pen (Humalog Mix 75-25 KwikPen) 40 unit SC DAILY@0700 09/19/23
insulin lispro protamine-lispro 100 unit/mL (75-25) subcutaneous pen (Humalog Mix 75-25 KwikPen) 55 unit SC QPM@1900 09/19/23
losartan 50 mg tablet 50 mg PO DAILY 09/19/23
metoprolol succinate 25 mg tablet,extended release 24 hr (Toprol XL) 25 mg PO BID 09/19/23
naproxen sodium 220 mg tablet 440 mg PO DAILYPRN PRN mild pain 08/09/24
vitamin B complex 1 tab PO QPM 08/09/24
Review of Systems
-
History Source: Patient
A 12 point ROS was completed and negative except as noted: Yes
Constitutional: Denies Fever or Chills
Respiratory: Reports Trouble Breathing; Denies Cough
Cardiac: Denies Chest Pain or Palpitations
Abdomen/GI: Denies Abdominal Pain, Nausea, Vomiting, Diarrhea or Constipated
Physical Exam
Vital Signs
Vital Signs
Temp Pulse Resp BP Pulse Ox
98.4 F 86 17 150/99 94
08/09/24 10:24 08/09/24 13:45 08/09/24 13:45 08/09/24 13:02 08/09/24 13:45
Physical Exam
General: Well Developed, No Apparent Distress and Morbidly Obese
HEENT: NormoCephalic, Anicteric, Moist mucous membranes and Atraumatic
Respiratory: Clear and Non Labored Respirations; No Wheezes, Rales or Rhonchi
Cardiac: S1/S2 and Irregular Rhythm; No Tachycardia
GI: Soft, Non Tender, Non Distended and Normal Bowel Sounds
Rectal: Deferred by Provider
Musculoskeletal: No Clubbing, No Cyanosis and Other (+4 pitting edema bilateral lower extremities)
Skin: Warm and Dry; No Rash
Neuro: Awake, Alert, Oriented and Nonfocal/grossly intact
Psych: Calm
Laboratory Results
-
08/09/24 11:28
08/09/24 12:24
Laboratory Results
Total Bilirubin 1.7 mg/dl (0.2-1.3) H 08/09/24 12:24
AST 45 U/L (17-59) 08/09/24 12:24
ALT 53 U/L (0-50) H 08/09/24 12:24
Alkaline Phosphatase 61 U/L (38-126) 08/09/24 12:24
Troponin I < 0.012 ng/ml 08/09/24 12:24
Data Reviewed
-
Lab Data: Labs Reviewed by me
Impression/Plan
-
Acute Heart Failure, suspect preserved EF
-Consult Cardiology
-Check Echocardiogram
-Continue Lasix 40mg IV Daily
Permanent Atrial Fibrillation
-Continue Eliquis for anticoagulation
Essential Hypertension
-Continue losartan and metoprolol
Hyperlipidemia
-Continue Zetia
Insulin Dependent Diabetes Mellitus - Sugars currently uncontrolled
-Check HgbA1c
-Continue Humalog 75/
-Continue high dose coverage insulin
Obstructive Sleep Apnea
-Patient's will be bring CPAP from home
Morbid Obesity due to Excess Calories
-Affects all aspects of care
Hx Pericarditis / Pericardial Effusion
Hx Stroke with no residual symptoms
DVT proph: Eliquis
Code Status: Full Code
--- NOTE | 2024-08-09 16:14 | W.PN.UPDATE ---
Update Note
Progress Note Update
This is an addendum to the H&P written by Yuko Thompson on 08/09/2024.� Patient seen and examined independently with PA.�
64-year-old male past medical history of permanent atrial fibrillation, history of recurrent pericarditis, normocytic anemia, diabetes, hypertension, hyperlipidemia, TIA, obstructive sleep apnea on CPAP, obesity, presenting for shortness of breath
ongoing for 2 weeks with exertion and lying down flat.� Increased lower extreme edema.
Vital signs normal.� Labs unremarkable apart from blood sugar 293.� D-dimer of 2.93.� Cardiac BNP of 800.� CT PE shows mild cardiomegaly, slightly increased pulmonary vascularity.,� Small to moderate bilateral pleural effusions, mildly slightly
increased mediastinal new small bilateral hilar lymph node possibly inflammatory/infectious.
Presentation consistent with acute CHF exacerbation.� 40 IV Lasix daily.� Check echocardiogram.� Cardiology consulted.
Hilar lymphadenopathy does not correlate with pneumonia or acute bronchitis or malignancy.� Outpatient follow-up.
Check hemoglobin A1c due to hyperglycemia.� Continue home insulin doses with high-dose sliding scale.
[2024-08-09 17:43] LABS: Glucose - Point of Care 189 mg/dl (70-99)
[2024-08-09] MEDS: ELIQUIS 5 MG PO (19:43)
[2024-08-09] MEDS: TOPROL XL 25 MG PO (19:44)
[2024-08-09] MEDS: NOVOLOG MIX 70/30 FLEXPEN 55 UNITS SC (19:45)
[2024-08-09 21:26] LABS: Glucose - Point of Care 224 mg/dl (70-99)
[2024-08-10 03:12] VITALS: BP 145/71
[2024-08-10 07:19] VITALS: BP 109/66
--- NOTE | 2024-08-10 07:59 | CON.CAR ---
Addendum entered and electronically signed by Bj Yang MD 08/10/24 10:28:
I saw and examined the patient.
The HORTICULTURALIST's note was reviewed and I agree with the note.
Comment: New heart failure. Will check echo and if echo shows siginificant valve disease or LV dysfunction we will progress to L/R heart cath. If echo favorable will defer ischemic evaluation to an outpatient stress test. Agree with inpatient IV
diuresis. He is on low dose Lasix for chronic LE edema not related to heart failure, ARB for DM and HF BB just for AFib heart rate control. We will add MRA and SGLT2-I. He is a good candidate for GLP1 or GLP1/GIP agonist drugs for his DM/obesity
with HF. HF education.
Original Note:
Consultation
Consultation Request
Date/Time Consultation Requested: 08/09/24 1728
Date/Time Consultation Performed: 08/10/24 0800
Requesting Provider: Shar HOLBROOK
Performing Provider: Rebecca BRIDGES for Dr. Yang
Reason for Consultation: CHF
Medical History
-
Chief Complaint: SOB
History of Present Illness:
64 y/o male (follows with Dr. Yang) with hx pericarditis/pericardial effusion, permanent AFIB on Eliquis, DM on insulin, obesity, sleep apnea, chronic edema on Lasix who is here for evaluation of FAN x 2 weeks, which worsened over the past 3 days
and he developed orthopnea, PND, and worsened edema. There has been weight gain as well. He is feeling improved after a dose of IV Lasix. No fever, chills, or cough. Denies any CP.
Past Medical History
Past Medical History: Arrhythmias and IDDM
Social History
Personal:
Family History
Family History: Reviewed & Not Pertinent
Allergies / Home Medications
Allergy/AdvReac Type Severity Reaction Status Date / Time
Sulfa (Sulfonamide Allergy Hives Verified 08/09/24 10:28
Antibiotics)
sulfamethoxazole Allergy Hives Verified 08/09/24 10:28
[From Bactrim]
trimethoprim [From Bactrim] Allergy Hives Verified 08/09/24 10:28
�Medication �Instructions �Recorded �Confirmed �Type
omega 1-zmd-ekb-fish oil 1,000 mg 1 cap PO QPM Supplement 11/02/21 08/09/24 History
(120 mg-180 mg) capsule (Fish Oil)
apixaban 5 mg tablet (Eliquis) 5 mg PO BID 09/19/23 08/09/24 History
cholecalciferol (vitamin D3) 25 75 mcg PO QPM 09/19/23 08/09/24 History
mcg (1,000 unit) tablet
ezetimibe 10 mg tablet 10 mg PO DAILY 09/19/23 08/09/24 History
furosemide 20 mg tablet 20 mg PO DAILY 09/19/23 08/09/24 History
insulin lispro protamine-lispro 40 unit SC DAILY@0700 09/19/23 08/09/24 History
100 unit/mL (75-25) subcutaneous
pen (Humalog Mix 75-25 KwikPen)
insulin lispro protamine-lispro 55 unit SC QPM@1900 09/19/23 08/09/24 History
100 unit/mL (75-25) subcutaneous
pen (Humalog Mix 75-25 KwikPen)
losartan 50 mg tablet 50 mg PO DAILY 09/19/23 08/09/24 History
metoprolol succinate 25 mg 25 mg PO BID 09/19/23 08/09/24 History
tablet,extended release 24 hr
(Toprol XL)
naproxen sodium 220 mg tablet 440 mg PO DAILYPRN PRN mild pain 08/09/24 08/09/24 History
vitamin B complex 1 tab PO QPM 08/09/24 08/09/24 History
Review of Systems
-
History Source: Patient
All other systems: Negative unless noted
Constitutional: Weight Gain
Respiratory: Trouble Breathing
Musculoskeletal: Edema
Physical Exam
Vital Signs
Temp Pulse Resp BP Pulse Ox
97.7 F 87 20 145/71 96
08/10/24 03:12 08/10/24 03:12 08/10/24 03:12 08/10/24 03:12 08/10/24 03:12
Lab Results
Troponin I < 0.012 ng/ml 08/09/24 12:24
Hjf-L-Dmmisbhaxhh Pept 832 pg/ml 08/09/24 12:24
Physical Exam
General: Well Developed, Well Nourished and No Apparent Distress
HEENT: Normocephalic and Anicteric
Respiratory: Clear and Non Labored Respirations
Cardiac: Irregular Rhythm
Musculoskeletal: Edema (mild BLE edema)
Skin: Warm and Dry
Neuro: AO x 3
Psych: Calm
Impression / Plan
-
Acute HF, type unknown, EF preserved 2021:
-agree with IV Lasix, which requires intensive monitoring, will adjust to BID dosing
-obtain echo
-CHF education
-sodium/fluid limitations
-will saleh SGLT2I with CM
-add MRA
Permanent AFIB:
-rate-controlled
-continue BB, follow telemetry
-continue Eliquis for OAC ([id number] score is 5 for CHF, DM, age, and hx TIA per chart)
DM2 on insulin:
-management per primary team
Abnormal CT scan:
-see below
-w/u per primary
Obesity:
-will benefit from weight loss moving forward
HERIBERTO:
-continue CPAP
Data:
CT chest radiology report: No evidence of central pulmonary embolism. Mild cardiomegaly, unchanged. Slightly increased pulmonary vascularity and some faint bilateral groundglass opacity, nonspecific, could represent changes of acute pulmonary edema
with small to moderate bilateral pleural effusions. Mild slightly increased mediastinal and new small bilateral hilar lymph nodes, indeterminate, possibly inflammatory/infectious. Is there a history of primary malignancy? Consider oncologic
evaluation.
Data Reviewed
-
EKG: Tracing Personally Visualized and interpreted (AFIB [address]
CT Scan: Report Reviewed by me (as noted)
Medical Tests (Nuc Med, Echo etc): Report Reviewed by me (03/30/22: Normal left ventricular size, wall thickness and systolic function. Regional wall motion analysis limited by image quality. LV ejection fraction is 55-60% by visual assessment.
No significant valvular disease. )
Labs: Labs Reviewed by me
[2024-08-10 08:07] LABS: Glucose - Point of Care 138 mg/dl (70-99)
[2024-08-10 08:14] LABS: Hematocrit 36.1 % (39.0-52.0); Hemoglobin 11.9 g/dL (13.0-18.0); Mean Corpuscular Hgb 28.7 pg (27.0-31.0); Mean Corpuscular Volume 87.2 fL (80.0-94.0); Mean Platelet Volume 11.4 fL (7.4-10.4); Platelet Count 111 10^3/uL (130-400); Red Blood Cell Count 4.14 10^6/uL (4.70-6.10); Red Cell Dist. Width 14.6 % (11.5-14.5); White Blood Cell Count 6.4 10^3/uL (4.8-10.8)
[2024-08-10] MEDS: NOVOLOG FLEXPEN-HIGH RESISTANCE SC (08:20)
[2024-08-10] MEDS: NOVOLOG MIX 70/30 FLEXPEN 40 UNITS SC (08:21)
[2024-08-10] MEDS: TOPROL XL 25 MG PO ×2 (08:26→20:34)
[2024-08-10] MEDS: ZETIA 10 MG PO (08:26)
[2024-08-10] MEDS: COZAAR 50 MG PO (08:26)
[2024-08-10] MEDS: ELIQUIS 5 MG PO ×2 (08:26→20:44)
[2024-08-10] MEDS: LASIX 40 MG IV ×2 (08:26→16:08)
[2024-08-10 08:39] LABS: ALT (SGPT) 42 U/L (0-50); AST (SGOT) 29 U/L (17-59); Albumin 3.9 g/dl (3.5-5.0); Alkaline Phosphatase 60 U/L (38-126); Blood Urea Nitrogen 17 mg/dl (9-20); Calcium 8.8 mg/dl (8.4-10.2); Carbon Dioxide 25 mmol/L (22-30); Chloride 108 mmol/L (98-107); Direct Bilirubin 0.4 mg/dl (0.0-0.4); Estimated Creatinine Clearance > 125 ml/min; Glucose 141 mg/dl (70-99); HDL Cholesterol 30 mg/dl; LDL Cholesterol, Calculated 71 mg/dl; Magnesium 1.9 mg/dl (1.6-2.3); Potassium 3.7 mmol/L (3.5-5.1); Sodium 142 mmol/L (135-145); Total Bilirubin 1.8 mg/dl (0.2-1.3); Total Cholesterol 115 mg/dl (50-199); Total Protein 6.4 g/dl (6.3-8.2); Triglyceride 73 mg/dl (10-149); Very Low Density Lipoprotein 14 mg/dl (0-30); eGFR > 60.00
[2024-08-10 09:09] LABS: TSH Reflex To Free T4 3.87 uIU/ml (0.47-4.68)
--- NOTE | 2024-08-10 09:16 | CM ---
Received consult for cost of Leonidas and Vinnie. Both will required a prior auth and cost would be $25/month once approved.
[2024-08-10 10:19] LABS: Glycohemoglobin (HgbA1c) 9.8 % (4.0-5.6)
[2024-08-10] MEDS: INSPRA 25 MG PO (11:04)
[2024-08-10 11:26] VITALS: BP 114/69
--- NOTE | 2024-08-10 11:48 | CM ---
Reviewed the chart notes and spoke with the patient at the bedside. The patient resides with his spouse in a two story home with two steps to enter. The patient reports on DME is a CPAP machine. Patient denies VN or SNF in the past. Patient
confirmed his pharmacy of choice is [facility]. CM continues to be available to patient/family and is monitoring medical plan for needs at discharge.
Plan: Discharge to home when medically stable. No needs anticipated at this time.
--- NOTE | 2024-08-10 12:22 | W.PN.HOSP.TC ---
Today's Communication/Plan
-
IV lasix
MRA and possible SGLT2i
ECHO
Assessment / Plan
Assessment / Plan
Physical Exam
General: Well Developed, No Apparent Distress and Morbidly Obese
HEENT: NormoCephalic, Anicteric, Moist mucous membranes and Atraumatic
Respiratory: Clear and Non Labored Respirations; No Wheezes, Rales or Rhonchi
Cardiac: S1/S2 and Irregular Rhythm; No Tachycardia
GI: Soft, Non Tender, Non Distended and Normal Bowel Sounds
Rectal: Deferred by Provider
Musculoskeletal: No Clubbing, No Cyanosis and Other (+3 pitting edema bilateral lower extremities)
Skin: Warm and Dry; No Rash
Neuro: Awake, Alert, Oriented and Nonfocal/grossly intact
Psych: Calm
Acute Heart Failure, suspect preserved EF
-Consult Cardiology
-Check Echocardiogram
-Continue Lasix 40mg IV BID
-Na restriction
-SGLTI2 if proced ok
-add MRA
Permanent Atrial Fibrillation
-Continue Eliquis for anticoagulation
-Continue BB
Essential Hypertension
-Continue losartan and metoprolol
Hyperlipidemia
-Continue Zetia
Insulin Dependent Diabetes Mellitus - Sugars currently uncontrolled
-HgbA1c - 9.8
-Continue Humalog 75/25
-Continue high dose coverage insulin
Obstructive Sleep Apnea
-Patient's will be bring CPAP from home
Morbid Obesity due to Excess Calories
-Affects all aspects of care
#Mild slightly increased mediastinal and new small bilateral hilar lymph nodes,
-no evidence of infection at this time
-Outpatient follow-up
Hx Pericarditis / Pericardial Effusion
Hx Stroke with no residual symptoms
DVT proph: Eliquis
Code Status: Full Code
Anticipated Discharge: 24 - 48 hours
Subjective/Interval History
-
Date of Service: August 10, 2024
feels better
Objective Data
-
Labs:
Laboratory Results
08/10/24
07:54
WBC 6.4
Hgb 11.9 L
Hct 36.1 L
Plt Count 111 L
Sodium 142
Potassium 3.7
Chloride 108 H
Carbon Dioxide 25
BUN 17
Creatinine 0.8
Glucose 141 H
Calcium 8.8
Total Bilirubin 1.8 H
AST 29
ALT 42
Alkaline Phosphatase 60
Vital Signs:
Vital Signs
Temp Pulse Resp BP Pulse Ox
98.9 F 83 18 114/69 95
08/10/24 11:26 08/10/24 11:26 08/10/24 11:26 08/10/24 11:26 08/10/24 11:26
I&O
08/09/24 08/10/24 08/11/24
06:59 06:59 06:59
Intake Total 1071 / 1071
Balance 1071 / 1071
Review of Systems
-
History Source: Patient
All other systems: Not reviewed unless documented
Data Reviewed
-
Labs: Labs Reviewed by me and Discussed with Patient
[2024-08-10 13:09] LABS: Glucose - Point of Care 307 mg/dl (70-99)
[2024-08-10] MEDS: NOVOLOG FLEXPEN-HIGH RESISTANCE 10 UNITS SC (13:11)
--- NOTE | 2024-08-10 14:15 | CARDSERVLU ---
Echocardiogram with [facility] completed after protocol screening completed. Allergies verified.
Patent IV site: _Rt FA___
IV site flushed with 0.9% NaCl pre and post administration.
Diluted bolus method utilized to enhance visualization of ventricular woodson.
Total volume given: _3.0___ mL
Patient tolerated all procedures well without complications.
[2024-08-10 15:13] VITALS: BP 119/63
--- NOTE | 2024-08-10 15:15 | PN.DE.MGMTRT ---
Insulin Management
- -
08/10/2024: Diabetes Management Consult
64 year old male with PMH: PAF, HTN, HLD, CVA, Pericarditis / Pericardial Effusion, HERIBERTO, Morbid Obesity and T2DM. Patient presented with increasing SOB over the past two weeks associated with increasing dyspnea on exertion and orthopnea with BLE
edema.
Workup revealed New heart failure, now on IV diuresis. A1C 9.8% (Pt states it was ~7.1 a few months ago), Cr 0.8, eGFR >60
Pt awake, alert, sitting up in chair, offers no complaints, able to discuss diabetes care plan
States he sees his PCP for routine diabetes care, was taking Humalog 75/25, 40 units in AM and 55 units in PM.
He does not monitor his blood sugars at home, does not follow any specific diet and does not exercise.
Says he was using a CGM at one point but stopped using it a few years ago.
Glucose has been elevated since admission, except for fasting which was 141 V, 139 POC, this AM. Otherwise, pre-dinner glucose was 189, HS was 224 and Pre-Lunch glucose was 307 today.
Will increase AM dose to 45 units. Cont same dose of 70/30 in PM -55 units.
Farxiga 10mg has been added, 1st dose to scheduled to start tomorrow morning. Will add Farxiga 10mg dose for today. Discussed mechanism of action and SE with pt and he was agreeable. Will look up co-pay if info is available in system.
Pt was offered a new glucose monitor and he declined it. Encouraged pt to speak to PCP about getting a script got a CGM to resume use after discharge
Discuss with Nurse at bedside.
Will cont to follow
Diabetes History
- -
Type of Diabetes: 2 requiring insulin
Pre-Admission Diabetes Regimen
08/10/24
07:54
Creatinine 0.8
Lab Results
Hemoglobin A1c 9.8 % (4.0-5.6) H 08/10/24 07:54
Insulin Pump Settings
IP Diabetes Regimen
08/09/24 08/09/24 08/10/24
17:41 21:25 07:54
Glucose 141 H
POC Glucose 189 H 224 H
08/10/24 08/10/24
08:06 13:08
Glucose
POC Glucose 138 H 307 H
Meal type: Breakfast
Meal type: Dinner
Amount consumed: 100%
Patient Education
[2024-08-10] MEDS: FARXIGA 10 MG PO (16:08)
[2024-08-10 17:11] LABS: Glucose - Point of Care 239 mg/dl (70-99)
[2024-08-10] MEDS: NOVOLOG FLEXPEN-HIGH RESISTANCE 4 UNITS SC (17:37)
[2024-08-10] MEDS: NOVOLOG MIX 70/30 FLEXPEN 55 UNITS SC (18:26)
[2024-08-10 20:57] LABS: Glucose - Point of Care 139 mg/dl (70-99)
[2024-08-10 23:15] VITALS: BP 112/58
[2024-08-11 03:35] VITALS: BP 108/62
[2024-08-11 05:49] VITALS: BMI 45.0
--- NOTE | 2024-08-11 07:31 | PN.DE.MGMTRT ---
Insulin Management
- -
08/11/2024: Diabetes Management Consult Follow up
Patient admitted 08/09 with increasing SOB and lower extremity edema for 2 weeks - NEW CHF. PMH: PAF, HTN, HLD, CVA, Pericarditis / Pericardial Effusion, HERIBERTO, Morbid Obesity and T2DM. Prior to admission was taking Humalog 75/25, 40 units in AM and
55 units in PM. A1C 9.8% (Pt states it was ~7.1 a few months ago), Cr 0.8, eGFR >60
Pt awake, alert, sitting up in chair, offers no complaints, able to discuss diabetes care plan. States he sees his PCP for routine diabetes care.
States he has had diabetes 10+ years, has Rosy CGM, does not follow any specific diet and does not exercise.
Patient currently receiving 70/30 novolog 40 units in AM and 55 units with dinner. Farxiga 10mg has been added, 1st dose to scheduled 08/10 @ 4pm. Glucose range 138 to 307. Will increase AM 70/30 to 45 units, continue 55 units with dinner and Farxiga
10 mg daily.
Pt was offered a new glucose monitor and he declined it.
Discuss with Nurse at bedside.
Will cont to follow
Diabetes History
- -
Type of Diabetes: 2 requiring insulin
Pre-Admission Diabetes Regimen
08/10/24
07:54
Creatinine 0.8
Lab Results
Hemoglobin A1c 9.8 % (4.0-5.6) H 08/10/24 07:54
Insulin Pump Settings
IP Diabetes Regimen
08/10/24 08/10/24 08/10/24
07:54 08:06 13:08
Glucose 141 H
POC Glucose 138 H 307 H
08/10/24 08/10/24
17:10 20:56
Glucose
POC Glucose 239 H 139 H
Meal type: Lunch
Meal type: Breakfast
Amount consumed: 100%
Amount consumed: 100%
Patient Education
[2024-08-11 07:40] VITALS: BP 99/42
[2024-08-11 07:52] LABS: Glucose - Point of Care 105 mg/dl (70-99)
[2024-08-11 08:03] LABS: Blood Urea Nitrogen 17 mg/dl (9-20); Carbon Dioxide 29 mmol/L (22-30); Chloride 105 mmol/L (98-107); Estimated Creatinine Clearance > 125 ml/min; Glucose 97 mg/dl (70-99); Potassium 3.5 mmol/L (3.5-5.1); Sodium 142 mmol/L (135-145); eGFR > 60.00
[2024-08-11 08:42] VITALS: BP 134/79
[2024-08-11] MEDS: NOVOLOG FLEXPEN-HIGH RESISTANCE SC (09:06)
[2024-08-11] MEDS: LASIX 40 MG IV ×2 (09:07→15:13)
[2024-08-11] MEDS: TOPROL XL 25 MG PO (09:08)
[2024-08-11] MEDS: ELIQUIS 5 MG PO (09:08)
[2024-08-11] MEDS: ZETIA 10 MG PO (09:08)
[2024-08-11] MEDS: FARXIGA 10 MG PO (09:08)
[2024-08-11] MEDS: NOVOLOG MIX 70/30 FLEXPEN 45 UNITS SC (09:09)
[2024-08-11] MEDS: INSPRA 25 MG PO (09:09)
[2024-08-11] MEDS: COZAAR 50 MG PO (09:09)
--- NOTE | 2024-08-11 09:41 | W.PN.CD ---
Today's Communication / Plan
-
Ok for home but one more day of IV diuresis reasonable
Goal weight not yet determined => he needs caloric weight loss as well => hope he goes on Zepbound, may need to monitor edema/labs more the weight if he is successful with weightloss
BMP in 2 and 4 weeks
For now home on Lasix 40 PO BID and monitor
He will need a followup CT scan as well
Should have elective Heme evaluation as well for low H/H and low plt
Impression / Plan
-
Acute HFpEF,
- Doing well with diuresis IV Lasix 40 bid
- Can use co-pay card for Farxiga/Jardiance
- On eplerenone
- On ARb
Permanent AFIB:
-rate-controlled on BB
-continue BB, follow telemetry
-continue Eliquis for OAC ([id number] score is 5 for CHF, DM, age, and hx TIA per chart)
DM2 on insulin:
-management per primary team
Abnormal CT scan:
-see below
-w/u per primary
Obesity:
-will benefit from weight loss moving forward
HERIBERTO:
-continue CPAP
Subjective: Feels much better
Data:
CT chest radiology report: No evidence of central pulmonary embolism. Mild cardiomegaly, unchanged. Slightly increased pulmonary vascularity and some faint bilateral ground glass opacity, nonspecific, could represent changes of acute pulmonary edema
with small to moderate bilateral pleural effusions. Mild slightly increased mediastinal and new small bilateral hilar lymph nodes, indeterminate, possibly inflammatory/infectious. Is there a history of primary malignancy? Consider oncologic
evaluation.
Physical Exam
Vital Signs/Labs
Vital Signs
Temp Pulse Resp BP Pulse Ox
98.2 F 81 18 134/79 93
08/11/24 07:40 08/11/24 08:42 08/11/24 07:40 08/11/24 09:09 08/11/24 07:40
08/10/24 08/11/24 08/12/24
06:59 06:59 06:59
Actual Weight 171.639 kg 167.648 kg
08/10/24 07:54
08/11/24 07:11
Magnesium 1.9 mg/dl (1.6-2.3) 08/10/24 07:54
Triglycerides 73 mg/dl (10-149) 08/10/24 07:54
LDL Cholesterol, Calc 71 mg/dl 08/10/24 07:54
VLDL Cholesterol, Calc 14 mg/dl (0-30) 08/10/24 07:54
HDL Cholesterol 30 mg/dl 08/10/24 07:54
08/09/24
12:24
[id number] Pept 832
LAB Results
08/09/24
12:24
Troponin I < 0.012
Physical Exam
Constitutional: No acute distress
EENT: Anicteric
Cardiovascular: Rhythm/rate is irregular and Pedal edema present
Respiratory: Respiratory effort normal and Lungs clear to auscul.
GI: Soft and Distention absent
Neuro/Psych: AO x 3
Data Reviewed
-
Date of Service: August 11, 2024
[2024-08-11 11:20] VITALS: BP 114/68
[2024-08-11 11:20] LABS: Glucose - Point of Care 169 mg/dl (70-99)
--- NOTE | 2024-08-11 11:48 | CM ---
Reviewed the chart notes and spoke with the patient at the bedside. IMM reviewed. CM continues to be available to patient/family and is monitoring medical plan for needs at discharge.
Plan: Discharge today to home with no needs. Patient will drive self home.
--- NOTE | 2024-08-11 12:06 | W.PN.HOSP.TC ---
Addendum entered and electronically signed by eSan Ghotra MD 08/12/24 15:55:
[id number]
Original Note:
Today's Communication/Plan
-
F/u CBC monitoring hgb and platelets outpt
F/u heme for pancytopenia and hilar lymphadenopathy
f/u bmp in 1-2 weeks now that on lasix
home on Lasix 40 PO BID and monitor
F/u PCP within 1 week, Cards and heme outpt
Assessment / Plan
Assessment / Plan
Physical Exam
General: Well Developed, No Apparent Distress and Morbidly Obese
HEENT: NormoCephalic, Anicteric, Moist mucous membranes and Atraumatic
Respiratory: Clear and Non Labored Respirations; No Wheezes, Rales or Rhonchi
Cardiac: S1/S2 and Irregular Rhythm; No Tachycardia
GI: Soft, Non Tender, Non Distended and Normal Bowel Sounds
Rectal: Deferred by Provider
Musculoskeletal: No Clubbing, No Cyanosis and Other (+3 pitting edema bilateral lower extremities)
Skin: Warm and Dry; No Rash
Neuro: Awake, Alert, Oriented and Nonfocal/grossly intact
Psych: Calm
Acute Heart Failure, suspect preserved EF
-Consult Cardiology
-Check Echocardiogram - EF 50-55%, moderate eccentric mitral regurg
-Continue Lasix 40mg IV BID - switch to lasix 40mg BID PO at home
-F/u bmp in 1-2 weeks with pcp/cards
-Na restriction
-SGLTI2
-add MRA
Permanent Atrial Fibrillation
-Continue Eliquis for anticoagulation
-Continue BB
Essential Hypertension
-Continue losartan and metoprolol
Hyperlipidemia
-Continue Zetia
Insulin Dependent Diabetes Mellitus - Sugars currently uncontrolled
-HgbA1c - 9.8
-Continue Humalog 75/25 - adjusted with help of DM RESEARCH RECRUITER
-Continue high dose coverage insulin
Obstructive Sleep Apnea
-Patient's will be bring CPAP from home
Morbid Obesity due to Excess Calories
-Affects all aspects of care
#Thrombocytopenia
-f/u cbc and heme outpt
#Mild slightly increased mediastinal and new small bilateral hilar lymph nodes,
-no evidence of infection at this time
-Outpatient follow up with heme
Hx Pericarditis / Pericardial Effusion
Hx Stroke with no residual symptoms
DVT proph: Eliquis
Code Status: Full Code
More than 30 minutes spent in discharge including
Final examination of the patient
Summarizing hospital stay
Instructions for continuing care to all relevant caregivers
Preparation of discharge records, prescriptions, and referral forms
Total time spent (in minutes): 36
Anticipated Discharge: Today
Subjective/Interval History
-
Date of Service: August 11, 2024
feels better, le edema improved
Objective Data
-
Labs:
Laboratory Results
08/11/24
07:11
Sodium 142
Potassium 3.5
Chloride 105
Carbon Dioxide 29
BUN 17
Creatinine 0.9
Glucose 97
Calcium 9.0
Vital Signs:
Vital Signs
Temp Pulse Resp BP Pulse Ox
97.8 F 86 16 114/68 95
08/11/24 11:20 08/11/24 11:20 08/11/24 11:20 08/11/24 11:20 08/11/24 11:20
I&O
08/10/24 08/11/24 08/12/24
06:59 06:59 06:59
Intake Total 1071 / 1071 1020 / 1020
Balance 1070 / 1071 1020 / 1020
Review of Systems
-
History Source: Patient
All other systems: Not reviewed unless documented
Physical Exam
-
General: Well Developed, Well Nourished and No Apparent Distress
HEENT: Normocephalic, Atraumatic, Moist Mucous Membranes and PERRLA
Respiratory: Clear to Auscultation
Cardiac: Regular Rhythm and S1/S2; Negative Murmur, Rub or JVD
GI: Soft, Nontender, Nondistended and Normal Bowel Sounds
Musculoskeletal: No Clubbing, No Cyanosis and No Edema
Neuro: Awake, Alert, Oriented, No Motor Deficits and Nonfocal/Grossly Intact
Data Reviewed
-
CT Scan: Report Reviewed by me
Labs: Labs Reviewed by me and Discussed with Patient
--- NOTE | 2024-08-11 12:18 | W.DS.TRANS ---
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
-
Discharge Instructions:
Discharge Diagnosis/Procedures Acute HFpEF
Mild slightly increased mediastinal and new
small bilateral hilar lymph nodes,
Diet Low Cholesterol,Low Fat,2 Gram Sodium,Restrict
fluids to 48 oz
Activity As tolerated
Blood Work cbc (monitoring platelets and hgb) within 1 week
with pcp
Others Tests Mild slightly increased mediastinal and new
small bilateral hilar lymph nodes, indeterminate
, possibly inflammatory/infectious - needs
follow up hematology within 1-2 weeks; may need
repeat imaging
Instructions: *CBC Heart Failure Instructions
Stand-Alone Forms:
Changes to Home Medications: Yes
Discharge Medications:
DC Medications w/original date entered in [facility]
omega 3-ctq-nvo-fish oil 1,000 mg (120 mg-180 mg) capsule (Fish Oil) 1 cap PO QPM Supplement 11/02/21
apixaban 5 mg tablet (Eliquis) 5 mg PO BID 09/19/23
cholecalciferol (vitamin D3) 25 mcg (1,000 unit) tablet 75 mcg PO QPM 09/19/23
ezetimibe 10 mg tablet 10 mg PO DAILY 09/19/23
insulin lispro protamine-lispro 100 unit/mL (75-25) subcutaneous pen (Humalog Mix 75-25 KwikPen) 55 unit SC QPM@1900 09/19/23
losartan 50 mg tablet 50 mg PO DAILY 09/19/23
metoprolol succinate 25 mg tablet,extended release 24 hr (Toprol XL) 25 mg PO BID 09/19/23
vitamin B complex 1 tab PO QPM 08/09/24
dapagliflozin propanediol 10 mg tablet 10 mg PO DAILY 30 days #30 tabs 08/11/24
eplerenone 25 mg tablet 25 mg PO DAILY 30 days #30 tabs 08/11/24
furosemide 40 mg tablet 40 mg PO BID 30 days #60 tabs 08/11/24
insulin lispro protamine-lispro 100 unit/mL (75-25) subcutaneous pen (Humalog Mix 75-25 KwikPen) 45 unit (0.45 mL) SC DAILY@0700 #0 mL 08/11/24
Home Medication Changes
dapagliflozin propanediol 10 mg tablet 10 mg PO DAILY 30 days #30 tabs 08/11/24
eplerenone 25 mg tablet 25 mg PO DAILY 30 days #30 tabs 08/11/24
furosemide 40 mg tablet 40 mg PO BID 30 days #60 tabs 08/11/24
insulin lispro protamine-lispro 100 unit/mL (75-25) subcutaneous pen (Humalog Mix 75-25 KwikPen) 45 unit (0.45 mL) SC DAILY@0700 #0 mL 08/11/24
Pending Results: No
[2024-08-11 15:15] VITALS: BP 148/78
--- NOTE | 2024-08-12 09:21 | W.HF.CON ---
Heart Failure
- LV Function
Left ventricular function study result: LV Ejection fraction >/= 50%
Ejection Fraction Percentage: 50-55
- ARNI
Patient already on ARNI: No
Heart Failure ARNI Not Indicated: LV Ejection Fraction >/= 40%
- ACEI/ARB
Patient already on ACEI/ARB: Yes
- Beta Melida
Patient already on Evidence Based Beta Melida: Yes
- Mineralocorticord Receptor Antagonist
Patient already on MRA: Yes
- SGLT-2 Inhibitor
Patient already on SGLT-2 Inhibitor: Yes
- Afib Anticoagulation
Patient already on Anticoagulation for Afib: Yes
- NYHA CHF Classification
NYHA CHF Classification Level: Class III - Symptoms w/ min exertion, interferes w/ nml daily activity
- ACC/AHA Stage
ACC/AHA Stage: Stage C: Symptomatic Heart Failure
== END 2024-08-11 15:55 | disposition home or self-care (01) | DRG 291 ==
LOC: 2 NORTH 16:24
PROVIDERS: Physician Assistant; Physician Assistant Medical; ADMITTING PHYSICIAN Hospitalist; ATTENDING PHYSICIAN Internal Medicine; CONSULT PHYSICIAN Internal Medicine Cardiovascular Disease; EMERGENCY PHYSICIAN Emergency Medicine; FAMILY PHYSICIAN Family Medicine
DX: I11.0 Hypertensive heart disease with heart failure (principal); I50.31 Acute diastolic (congestive) heart failure; I48.21 Permanent atrial fibrillation; Z68.42 Body mass index [BMI] 45.0-49.9, adult; E11.9 Type 2 diabetes mellitus without complications; E66.01 Morbid (severe) obesity due to excess calories; D69.6 Thrombocytopenia, unspecified; G47.33 Obstructive sleep apnea (adult) (pediatric); R59.0 Localized enlarged lymph nodes; E78.5 Hyperlipidemia, unspecified; Z79.4 Long term (current) use of insulin; Z79.01 Long term (current) use of anticoagulants; Z86.73 Personal history of transient ischemic attack (TIA), and cerebral infarction without residual deficits
CPT/HCPCS: 71275; 80048; 80053; 80061; 80076; 82248; 82962; 83036; 83735; 83880; 84132; 84443; 84484; 85025; 85027; 85379; 93005; 93306; 96374; 99285; Q9950; Q9967